=== PATIENT | female | born 1970 | race Caucasian/White ===

== ENCOUNTER 2017-12-10 18:07 | Emergency (ER) | payer MEDICAID ==
[2017-12-10] MEDS: SOD CHLORIDE 0.9% 1,000 ML IV (19:08)
[2017-12-10] MEDS: MECLIZINE 12.5 MG TAB PO (19:08)
[2017-12-10] MEDS: ONDANSETRON 4 MG INJ IV (19:08)
== END 2017-12-10 20:46 | disposition home or self-care (01) ==
LOC: FTE 20:46
DX: R42 Dizziness and giddiness (principal); R11.2 Nausea with vomiting, unspecified
CPT/HCPCS: 81025; 82962; 96374; 99284-25

== ENCOUNTER 2018-06-05 17:43 | Emergency (ER) | payer MEDICAID ==
[2018-06-05] MEDS: ACETAMINOPHEN 325 MG TAB PO (20:24)
[2018-06-05] MEDS: predniSONE 20 MG TAB PO (20:39)
[2018-06-05] MEDS: PREDNISOLONE ACET 1% 5 ML OPH BOTH EYES (20:52)
== END 2018-06-05 21:06 | disposition home or self-care (01) ==
LOC: FTE 17:43
DX: H15.003 Unspecified scleritis, bilateral (principal); I10 Essential (primary) hypertension
CPT/HCPCS: 99283; J7512